=== PATIENT | female | born 1970 | race Caucasian/White ===

== ENCOUNTER 2016-12-03 13:33 | Emergency (ER) | payer MEDICARE, OTHER ==
--- NOTE | 2016-12-03 14:59 | ER Document Report ---
ED Medical Screen (RME) - General Chief Complaint: Chest Pain Stated Complaint: CHEST PAIN Mode of Arrival: Ambulatory Information source: Patient Notes: 46-year-old female history of Fate's disease with chronic chest pain presents with complaints of chest pain rating to her neck. Patient notes she has had this pain for at least 1 year normal goes to [facility] where she has been seen multiple times for this, has had recent evaluation on Monday as well. Patient denies any history of hypertension hyperlipidemia or diabetes, patient had a heart catheter in 2008 which was normal I have greeted and performed a rapid initial assessment of this patient. A comprehensive ED assessment and evaluation of the patient, analysis of test results and completion of the medical decision making process will be conducted by additional ED providers. PHYSICAL EXAMINATION: GENERAL: Well-appearing, well-nourished and in no acute distress. HEAD: Atraumatic, normocephalic. EYES: Pupils equal round and reactive to light, extraocular movements intact, conjunctiva are normal. ENT: Nares patent, oropharynx clear without exudates. Moist mucous membranes. NECK: Normal range of motion, supple without lymphadenopathy LUNGS: Breath sounds clear to auscultation bilaterally and equal. No wheezes rales or rhonchi. HEART: Regular rate and rhythm without murmurs ABDOMEN: Soft, nontender, nondistended abdomen. No guarding, no rebound. No masses appreciated. Female : deferred Musculoskeletal: Normal range of motion, no pitting or edema. No cyanosis. NEUROLOGICAL: Cranial nerves grossly intact. Normal speech, normal gait. Normal sensory, motor exams PSYCH: Normal mood, normal affect. SKIN: Warm, Dry, normal turgor, no rashes or lesions noted. TRAVEL OUTSIDE OF THE [place] IN LAST 30 DAYS: No - HPI Onset: Other Onset/Duration: Persistent Quality of pain: Pressure Severity: Mild Pain Level: 1 Associated Symptoms: Chest pain Exacerbated by: Denies Relieved by: Denies - Related Data Allergies/Adverse Reactions: acetaminophen [From Tylenol] Allergy (Verified 12/03/16 13:51) dexamethasone [From Decadron] Allergy (Verified 01/24/16 19:22) dexamethasone sod phosphate [From Decadron] Allergy (Verified 01/24/16 19:22) hydrocodone Allergy (Verified 01/24/16 19:22) hyoscyamine [From Levsin] Allergy (Verified 12/03/16 14:20) ketorolac tromethamine [From Toradol] Allergy (Verified 01/24/16 19:22) NSAIDS (Non-Steroidal Anti-Inflamma Allergy (Verified 01/24/16 19:22) Penicillins Allergy (Verified 01/24/16 19:22) foam type Allergy (Uncoded 01/24/16 19:22) Past Medical History - Past Medical History Cardiac Medical History: Reports: Hx DVT Denies: Hx Congestive Heart Failure, Hx Coronary Artery Disease, Hx Heart Attack, Hx Hypercholesterolemia, Hx Hypertension, Hx Pulmonary Embolism Pulmonary Medical History: Reports: Hx COPD Endocrine Medical History: Denies: Hx Diabetes Mellitus Type 1, Hx Diabetes Mellitus Type 2 Renal/ Medical History: Denies: Hx Peritoneal Dialysis Psychiatric Medical History: Reports: Hx Anxiety, Hx Depression - anxiety Past Surgical History: Reports: Hx Appendectomy, Hx Cardiac Surgery - cath, Hx Hysterectomy, Hx Orthopedic Surgery - left shoulder right foot, Hx Tonsillectomy - Immunizations Hx Diphtheria, Pertussis, Tetanus Vaccination: Yes Physical Exam - Vital signs Vitals: Temp Pulse Resp BP Pulse Ox 98.3 F 92 18 115/55 L 96 12/03/16 13:51 12/03/16 13:51 12/03/16 13:51 12/03/16 13:51 12/03/16 13:51 Course - Vital Signs Vital signs: Temp Pulse Resp BP Pulse Ox 98.3 F 92 18 115/55 L 96 12/03/16 13:51 12/03/16 13:51 12/03/16 13:51 12/03/16 13:51 12/03/16 13:51
--- NOTE | 2016-12-03 15:04 | ER Document Report ---
ED General - General Chief Complaint: Chest Pain Stated Complaint: CHEST PAIN Mode of Arrival: Ambulatory TRAVEL OUTSIDE OF THE [place] IN LAST 30 DAYS: No - Related Data Allergies/Adverse Reactions: acetaminophen [From Tylenol] Allergy (Verified 12/03/16 13:51) dexamethasone [From Decadron] Allergy (Verified 01/24/16 19:22) dexamethasone sod phosphate [From Decadron] Allergy (Verified 01/24/16 19:22) hydrocodone Allergy (Verified 01/24/16 19:22) hyoscyamine [From Levsin] Allergy (Verified 12/03/16 14:20) ketorolac tromethamine [From Toradol] Allergy (Verified 01/24/16 19:22) NSAIDS (Non-Steroidal Anti-Inflamma Allergy (Verified 01/24/16 19:22) Penicillins Allergy (Verified 01/24/16 19:22) foam type Allergy (Uncoded 01/24/16 19:22) Past Medical History - General Information source: Patient - Social History Family History: CAD - Mother and brother, Other - Mother: DVT and PE Patient has suicidal ideation: No Patient has homicidal ideation: No - Past Medical History Cardiac Medical History: Reports: Hx DVT Denies: Hx Congestive Heart Failure, Hx Coronary Artery Disease, Hx Heart Attack, Hx Hypercholesterolemia, Hx Hypertension, Hx Pulmonary Embolism Pulmonary Medical History: Reports: Hx COPD Endocrine Medical History: Denies: Hx Diabetes Mellitus Type 1, Hx Diabetes Mellitus Type 2 Renal/ Medical History: Denies: Hx Peritoneal Dialysis Psychiatric Medical History: Reports: Hx Anxiety, Hx Depression - anxiety Past Surgical History: Reports: Hx Appendectomy, Hx Cardiac Surgery - cath, Hx Hysterectomy, Hx Orthopedic Surgery - left shoulder right foot, Hx Tonsillectomy - Immunizations Hx Diphtheria, Pertussis, Tetanus Vaccination: Yes Physical Exam - Vital signs Vitals: Temp Pulse Resp BP Pulse Ox 98.3 F 92 18 115/55 L 96 12/03/16 13:51 12/03/16 13:51 12/03/16 13:51 12/03/16 13:51 12/03/16 13:51 Course - Vital Signs Vital signs: Temp Pulse Resp BP Pulse Ox 98.3 F 92 18 115/55 L 96 12/03/16 13:51 12/03/16 13:51 12/03/16 13:51 12/03/16 13:51 12/03/16 13:51 Discharge - Discharge Clinical Impression: Chest pain Qualifiers: Chest pain type: unspecified Qualified Code(s): R07.9 - Chest pain, unspecified Condition: Stable Disposition: AGAINST MEDICAL ADVICE Instructions: Chest Pain of Unclear Cause ([facility]) Referrals: STELLA WINSTON MD [ACTIVE STAFF] - Follow up tomorrow TRU ARANDA MD [ACTIVE STAFF] - Follow up tomorrow JACKIE CANALES MD [EMERITUS] - Follow up tomorrow
[2016-12-03 15:31] LABS: ABSOLUTE BASOPHILS # (AUTO) 0.1 10^3/uL (0.0-0.2); ABSOLUTE LYMPHOCYTES (AUTO) 1.8 10^3/uL (0.5-4.7); ABSOLUTE MONOCYTES (AUTO) 0.6 10^3/uL (0.1-1.4); ABSOLUTE NEUT (AUTO) 9.7 10^3/uL (1.7-8.2); BASOPHILS % (AUTO) 0.5 % (0-2); EOSINOPHILS % (AUTO) 0.1 % (0-6); HEMATOCRIT 42.2 % (36.0-47.0); HEMOGLOBIN 14.5 g/dL (12.0-15.5); HGB HCT DIFFERENCE 1.3; LYMPHOCYTES % (AUTO) 14.9 % (13-45); MEAN CORPUSCULAR HEMOGLOBIN 32.9 pg (27.0-33.4); MEAN CORPUSCULAR HGB CONC 34.3 g/dL (32.0-36.0); MEAN CORPUSCULAR VOLUME 96 fl (80-97); RED CELL DISTRIBUTION WIDTH 14.5 % (11.5-14.0); SEGMENTED NEUTROPHILS % (AUTO) 79.5 % (42-78); WHITE BLOOD COUNT 12.2 10^3/uL (4.0-10.5)
[2016-12-03 15:45] LABS: ALANINE AMINOTRANSFERASE 28 U/L (9-52); ALBUMIN 4.2 g/dL (3.5-5.0); ALKALINE PHOSPHATASE 65 U/L (38-126); ANION GAP 10 (5-19); ASPARTATE AMINO TRANSFERASE 24 U/L (14-36); BILIRUBIN,DIRECT 0.1 mg/dL (0.0-0.4); BILIRUBIN,TOTAL 0.5 mg/dL (0.2-1.3); BLOOD UREA NITROGEN 9 mg/dL (7-20); CALCIUM 10.7 mg/dL (8.4-10.2); CARBON DIOXIDE 28 mmol/L (22-30); CHLORIDE 101 mmol/L (98-107); CREATINE KINASE 65 U/L (30-135); CREATININE RESULT 0.73 mg/dL (0.52-1.25); GLUCOSE 96 mg/dL (75-110); POTASSIUM 4.6 mmol/L (3.6-5.0); SODIUM 139.3 mmol/L (137-145); TOTAL PROTEIN 6.9 g/dL (6.3-8.2)
[2016-12-03 16:05] LABS: CREATINE KINASE MB 1.11 ng/mL (<4.55)
[2016-12-03 16:10] LABS: TROPONIN I < 0.012 ng/mL
--- NOTE | 2016-12-03 18:00 | ER Document Report ---
ED Cardiac - General Chief Complaint: Chest Pain Stated Complaint: CHEST PAIN Mode of Arrival: Ambulatory Notes: Patient is a 46 year old female who presents to the ED complaining of chest pain. She states she has been having this pain for about on year but todays onset was earlier this afternoon. She states that it is sudden onet with an initial sharp stabbing sensation lasting for 20-30 minutes and is then followed by a constant dull pressure that will eventually relive itself or if she takes an aspirin. She states that this pain has been evaluated over the course of this year with a stress test in December 2015 which she says showed a mild insufficiency of blood floow to the posterior aspect of her heart but is consistent with her history that she was a premature infant. She has not been evaluated by a corrections caseworker since this study. Her last evaluation for her chest pain was Monday11/28/2016 at [facility] where she was evaluated for addisonian crisis but discharged home, she states the staff told her her chest pain was not due to CAD but "my right aortic valve isnt closing". She was discharged home and followed up with her PCP at [facility] who did not acknowledge her chest pain. She states her rn icu gave her a referral to Dr. Canales to evaluate her regarding her possible murmur. She states she is irritated that physicians are not treating the patient but her lab work and EKG's. She denies any history of anxiety. Denies recent travel, surgery. FH (-) for CAD /NE in under 50 years old, Patient denies HTN, HLD, DM. She is not obese Upon further questioning, the patient became tearful and irritable regarding her previous evaluations and her wait time here in the ED today.She then refused treatment and started taking of her monitor leads. PMH: Addisons disease, gastric ulcers PSH: bryson SH: 40 pack year smoker, denies etoh or drug use TRAVEL OUTSIDE OF THE [place] IN LAST 30 DAYS: No - Related Data Allergies/Adverse Reactions: acetaminophen [From Tylenol] Allergy (Verified 12/03/16 13:51) dexamethasone [From Decadron] Allergy (Verified 01/24/16 19:22) dexamethasone sod phosphate [From Decadron] Allergy (Verified 01/24/16 19:22) hydrocodone Allergy (Verified 01/24/16 19:22) hyoscyamine [From Levsin] Allergy (Verified 12/03/16 14:20) ketorolac tromethamine [From Toradol] Allergy (Verified 01/24/16 19:22) NSAIDS (Non-Steroidal Anti-Inflamma Allergy (Verified 01/24/16 19:22) Penicillins Allergy (Verified 01/24/16 19:22) foam tape Allergy (Uncoded 12/03/16 16:51) foam type Allergy (Uncoded 01/24/16 19:22) Past Medical History - General Information source: Patient - Social History Smoking Status: Current Every Day Smoker Chew tobacco use (# tins/day): No Frequency of alcohol use: None Drug Abuse: None Family History: CAD - Mother and brother, Other - Mother: DVT and PE Patient has suicidal ideation: No Patient has homicidal ideation: No - Past Medical History Cardiac Medical History: Reports: Hx DVT Denies: Hx Congestive Heart Failure, Hx Coronary Artery Disease, Hx Heart Attack, Hx Hypercholesterolemia, Hx Hypertension, Hx Pulmonary Embolism Pulmonary Medical History: Reports: Hx COPD Endocrine Medical History: Denies: Hx Diabetes Mellitus Type 1, Hx Diabetes Mellitus Type 2 Renal/ Medical History: Denies: Hx Peritoneal Dialysis Psychiatric Medical History: Reports: Hx Anxiety, Hx Depression - anxiety Past Surgical History: Reports: Hx Appendectomy, Hx Cardiac Surgery - cath, Hx Cholecystectomy, Hx Hysterectomy, Hx Orthopedic Surgery - left shoulder right foot Rwrist, Hx Tonsillectomy - Immunizations Hx Diphtheria, Pertussis, Tetanus Vaccination: Yes Review of Systems - Review of Systems Constitutional: No symptoms reported Cardiovascular: Chest pain Respiratory: No symptoms reported Gastrointestinal: No symptoms reported -: Yes All other systems reviewed and negative Physical Exam - Vital signs Vitals: Temp Pulse Resp BP Pulse Ox 98.3 F 92 18 115/55 L 96 12/03/16 13:51 12/03/16 13:51 12/03/16 13:51 12/03/16 13:51 12/03/16 13:51 - Notes Notes: Patient refused physical exam and said she no longer wanted to be evaluated. She refused to let me examine her - Psychological Associated symptoms: Aggressive, Anxious, Irritable Course - Re-evaluation Re-evalutation: 12/03/16 19:39 Patient is very well in appearance albeit anxious, vitals within normal limits. Low clinical suspicion for ACS given clinical history, exam, EKG without ST elevations or depressions, and negative initial troponin. HEART score less than or equal to 3. PE also seems unlikely given clinical history, absence of tachycardia or dyspnea. Well's score of 0. CXR without evidence of pneumothorax or pneumonia. No widened mediastinum. Aortic dissection also seems unlikely given history, CXR, and vitals. Patient does not meet admit observation criteria. Patient eloped prior to discussion of AMA and we were not able to give her referrals for cardiology. - Vital Signs Vital signs: Temp Pulse Resp BP Pulse Ox 98.3 F 92 7 L 106/66 97 12/03/16 13:51 12/03/16 13:51 12/03/16 17:01 12/03/16 17:01 12/03/16 17:01 - Laboratory Result Diagrams: 12/03/16 15:10 12/03/16 15:10 Laboratory results interpreted by me: 12/03/16 12/03/16 15:10 15:10 WBC 12.2 H RDW 14.5 H Seg Neutrophils % 79.5 H Absolute Neutrophils 9.7 H Calcium 10.7 H - Diagnostic Test Radiology reviewed: Image reviewed, Reports reviewed - EKG Interpretation by Me EKG shows normal: Sinus rhythm Rate: Normal Rhythm: NSR When compared to previous EKG there are: No significant change Discharge - Discharge Clinical Impression: Chest pain Qualifiers: Chest pain type: unspecified Qualified Code(s): R07.9 - Chest pain, unspecified Condition: Stable Disposition: ELOPED Instructions: Chest Pain of Unclear Cause ([facility]) Referrals: TRU ARANDA MD [ACTIVE STAFF] - Follow up tomorrow JACKIE CANALES MD [EMERITUS] - Follow up tomorrow STELLA WINSTON MD [ACTIVE STAFF] - Follow up tomorrow
[2016-12-03 18:04] VITALS: BP 106/66
--- NOTE | 2016-12-04 10:21 | EKG REPORT ---
SEVERITY:- BORDERLINE ECG - SINUS RHYTHM PROBABLE LEFT ATRIAL ABNORMALITY : Confirmed by: Harini Escobedo 04-Dec-2016 10:21:30
== END 2016-12-03 18:00 | disposition left against medical advice (07) ==
LOC: ER 13:33
DX: R07.9 Chest pain, unspecified (principal); F17.200 Nicotine dependence, unspecified, uncomplicated
CPT/HCPCS: 36415; 71010; 80053; 82550; 82553; 84484; 85025; 93005; 93010; 99281

== ENCOUNTER → 2017-03-02 | Outpatient (CLI) | payer MEDICARE, OTHER ==
[2017-03-02 11:19] LABS: CHOLESTEROL 191.51 mg/dL (0-200); Direct HDL 67 mg/dL (>40); TRIGLYCERIDES 157 mg/dL (<150)
[2017-03-02 11:29] LABS: DIRECT LDL 94 mg/dL (<100)
[2017-03-02 11:31] LABS: VLDL CHOLESTEROL 31.4 mg/dL (10-31)
[2017-03-03 00:08] LABS: ALANINE AMINOTRANSFERASE 18 U/L (9-52); ALBUMIN 3.4 g/dL (3.5-5.0); ALKALINE PHOSPHATASE 57 U/L (38-126); ANION GAP 8 (5-19); ASPARTATE AMINO TRANSFERASE 17 U/L (14-36); BILIRUBIN,DIRECT 0.3 mg/dL (0.0-0.4); BILIRUBIN,TOTAL 0.3 mg/dL (0.2-1.3); BLOOD UREA NITROGEN 15 mg/dL (7-20); CALCIUM 9.2 mg/dL (8.4-10.2); CARBON DIOXIDE 27 mmol/L (22-30); CHLORIDE 104 mmol/L (98-107); CREATININE RESULT 0.93 mg/dL (0.52-1.25); GLUCOSE 84 mg/dL (75-110); POTASSIUM 4.2 mmol/L (3.6-5.0); SODIUM 139.4 mmol/L (137-145); TOTAL PROTEIN 6.1 g/dL (6.3-8.2)
== END ==
LOC: OD 09:48
PROVIDERS: ATTEND Internal Medicine Cardiovascular Disease
DX: R00.2 Palpitations (principal); R07.89 Other chest pain; Z79.899 Other long term (current) drug therapy
CPT/HCPCS: 36415; 80048; 80061; 80076; 83735; 84443

== ENCOUNTER → 2017-09-07 | Outpatient (CLI) | payer MEDICARE, OTHER ==
--- NOTE | 2017-09-07 13:40 | WOMENS IMAGING REPORT ---
EXAM DESCRIPTION: BONE DENSITY HIP/SPINE COMPLETED DATE/TIME: 09/07/2017 12:56 pm REASON FOR STUDY: AGE-RELATED OSTEOPROSIS; M81.0 M81.8 OTHER OSTEOPOROSIS WITHOUT CURRENT PATHOLOGI TINO FRACTU M81.0 AGE-RELATED OSTEOPOROSIS W/O CURRENT PATHOLOGICAL FRAC COMPARISON: None. TECHNIQUE: Dual-Energy X-ray Absorptiometry (DEXA) of the AP Spine and Hip. LIMITATIONS: None. FINDINGS: LUMBAR SPINE: The bone mineral density (BMD) measured from L1-L4 in the AP projection correlates with a T-score of -3.5, which is osteoporotic as defined by the World Health Organization. HIP: The bone mineral density (BMD) measured in the left femoral neck at the hip correlates with a T-score of -2.4, which is borderline osteoporotic as defined by the World Health Organization. IMPRESSION: 1. LUMBAR SPINE: Osteoporotic 2. HIP: Borderline osteoporotic COMMENT: The World Health Organization defines low BMD as follows: T-score: Normal: Greater than -1.0 Osteopenia: Between -1.0 and -2.5 Osteoporosis: Less than -2.5 without fractures Established osteoporosis: Less than -2.5 with fractures In general, you may wish to consider: Diagnosis Treatment Follow-up DEXA Normal BMD Prevention 2-3 years Osteopenia Prevention/Therapy 1-2 years Osteoporosis Therapy Yearly TECHNICAL DOCUMENTATION: JOB ID: [id number]- All Rights Reserved
== END ==
LOC: WI 12:47
PROVIDERS: ATTEND Physician Assistant
DX: M81.8 Other osteoporosis without current pathological fracture (principal)
CPT/HCPCS: 77080

== ENCOUNTER → 2018-03-24 | Outpatient (CLI) | payer MEDICARE, OTHER ==
[2018-03-24 12:53] LABS: ALANINE AMINOTRANSFERASE 16 U/L (9-52); ALBUMIN 3.5 g/dL (3.5-5.0); ALKALINE PHOSPHATASE 74 U/L (38-126); ASPARTATE AMINO TRANSFERASE 19 U/L (14-36); BILIRUBIN,DIRECT 0.3 mg/dL (0.0-0.4); BILIRUBIN,TOTAL 0.4 mg/dL (0.2-1.3); CHOLESTEROL 173.46 mg/dL (0-200); CREATINE KINASE 50 U/L (30-135); TOTAL PROTEIN 6.2 g/dL (6.3-8.2); TRIGLYCERIDES 185 mg/dL (<150)
[2018-03-24 13:06] LABS: DIRECT LDL 75 mg/dL (<100)
== END ==
LOC: OD 11:10
PROVIDERS: ATTEND Internal Medicine Cardiovascular Disease
DX: M81.8 Other osteoporosis without current pathological fracture (principal); E78.2 Mixed hyperlipidemia; R25.2 Cramp and spasm; Z79.899 Other long term (current) drug therapy
CPT/HCPCS: 36415; 80061; 80076; 82310; 82550; 82652

== ENCOUNTER → 2018-03-30 | Outpatient (CLI) | payer MEDICARE, OTHER ==
[2018-03-30 15:57] LABS: ANION GAP 9 (5-19); BLOOD UREA NITROGEN 7 mg/dL (7-20); CALCIUM 9.1 mg/dL (8.4-10.2); CARBON DIOXIDE 25 mmol/L (22-30); CHLORIDE 107 mmol/L (98-107); GLUCOSE 86 mg/dL (75-110); POTASSIUM 4.4 mmol/L (3.6-5.0); SODIUM 141.2 mmol/L (137-145)
== END ==
LOC: OD 14:20
PROVIDERS: ATTEND Internal Medicine Cardiovascular Disease
DX: R07.89 Other chest pain (principal); E27.9 Disorder of adrenal gland, unspecified; R53.82 Chronic fatigue, unspecified
CPT/HCPCS: 36415; 80048; 83880

== ENCOUNTER → 2018-04-06 | Day surgery (SDC) | payer MEDICARE, OTHER ==
--- NOTE | 2018-04-06 13:20 | RADIOLOGY REPORT (SQ) ---
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 COMPARISON: None. NUMBER OF VIEWS: Three views. TECHNIQUE: AP, lateral and oblique radiographic images acquired of the right foot. LIMITATIONS: None. FINDINGS: MINERALIZATION: Normal. BONES: Post bunion corrective surgery with healed 1st metatarsal osteotomy. Micro screws in the 2nd and 3rd metatarsal heads. Microplate and screws in the distal 3rd meta tarsal diaphysis. Surgical r adiopaque sutures 3rd toe proximal phalanx. No lucency around the hardware worrisome for loosening o r infection. No acute fracture. No malalignment. JOINTS: Osteoarthritis with joint space narrowing at the 1st through 4th metatarsophalangeal joints. SOFT TISSUES: No soft tissue swelling. No foreign body. OTHER: No other significant finding. IMPRESSION: No acute findings. Postsurgical changes as above TECHNICAL DOCUMENTATION: JOB ID: [id number] [employer]- All Rights Reserved Reading location - IP/workstation name: [email or web address]-[email or web address]
--- NOTE | 2018-04-06 13:22 | RADIOLOGY REPORT (SQ) ---
EXAM DESCRIPTION: ARTHRO HIP INJ W/ANESTHESIA; FLUORO/NEEDLE PLACEMENT COMPLETED DATE/TIME: 04/06/2018 1:14 pm REASON FOR STUDY: PAIN IN RIGHT HIP M25.551 PAIN IN RIGHT HIP COMPARISON: None. FLUOROSCOPY TIME: 10 seconds 1 digital radiographic images saved to PACS. LIMITATIONS: None. PROCEDURE: Procedure, risks, benefits and alternatives explained to patient who then gave written c onsent. The right hip was marked and a time-out was called for correct marking verification. Entry site marked using fluoroscopic guidance. Hip prepped and draped using sterile technique. Local ane sthesia achieved using 7 mL 1% lidocaine injection. 22 gauge spinal needle introduced into the joint space under direct fluoroscopic visualization. Non-ionic contrast instilled to confirm intra-articu lar position. Dilute gadolinium solution then injected. Needle removed and entry site covered with sterile bandage. No immediate complications noted. TECHNIQUE: Digital images acquired during fluoroscopy and stored on PACS. Patient immediately take n to the MR suite for additional imaging. INJECTION LOCATION: Right hip CONTRAST TYPE AND AMOUNT: 1 mL of Isovue-300 was injected to confirm intra-articular needle placement followed by 8 mL of Dotarem/Saline mixture. IMPRESSION: SUCCESSFUL NEEDLE PLACEMENT AND INJECTION FOR RIGHT HIP MR ARTHROGRAM. COMMENT: Quality ID 145: Final reports for procedures using fluoroscopy that document radiation exp osure indices, or exposure time and number of fluorographic images (if radiation exposure indices are not available) TECHNICAL DOCUMENTATION: JOB ID: [id number] [employer]- All Rights Reserved Reading location - IP/workstation name: [email or web address]
--- NOTE | 2018-04-06 13:22 | RADIOLOGY REPORT (SQ) ---
EXAM DESCRIPTION: ARTHRO HIP INJ W/ANESTHESIA; FLUORO/NEEDLE PLACEMENT COMPLETED DATE/TIME: 04/06/2018 1:14 pm REASON FOR STUDY: PAIN IN RIGHT HIP M25.551 PAIN IN RIGHT HIP COMPARISON: None. FLUOROSCOPY TIME: 10 seconds 1 digital radiographic images saved to PACS. LIMITATIONS: None. PROCEDURE: Procedure, risks, benefits and alternatives explained to patient who then gave written c onsent. The right hip was marked and a time-out was called for correct marking verification. Entry site marked using fluoroscopic guidance. Hip prepped and draped using sterile technique. Local ane sthesia achieved using 7 mL 1% lidocaine injection. 22 gauge spinal needle introduced into the joint space under direct fluoroscopic visualization. Non-ionic contrast instilled to confirm intra-articu lar position. Dilute gadolinium solution then injected. Needle removed and entry site covered with sterile bandage. No immediate complications noted. TECHNIQUE: Digital images acquired during fluoroscopy and stored on PACS. Patient immediately take n to the MR suite for additional imaging. INJECTION LOCATION: Right hip CONTRAST TYPE AND AMOUNT: 1 mL of Isovue-300 was injected to confirm intra-articular needle placement followed by 8 mL of Dotarem/Saline mixture. IMPRESSION: SUCCESSFUL NEEDLE PLACEMENT AND INJECTION FOR RIGHT HIP MR ARTHROGRAM. COMMENT: Quality ID 145: Final reports for procedures using fluoroscopy that document radiation exp osure indices, or exposure time and number of fluorographic images (if radiation exposure indices are not available) TECHNICAL DOCUMENTATION: JOB ID: [id number] [employer]- All Rights Reserved Reading location - IP/workstation name: [email or web address]
--- NOTE | 2018-04-06 14:52 | RADIOLOGY REPORT (SQ) ---
EXAM DESCRIPTION: MRI RT LOWER JOINT WITH COMPLETED DATE/TIME: 04/06/2018 1:53 pm REASON FOR STUDY: PAIN IN RIGHT HIP M25.551 PAIN IN RIGHT HIP COMPARISON: None. TECHNIQUE: Post arthrogram imaging is performed using T1 and T1 and T2 fat saturated sequences of th e pelvis and specific hip of interest. LIMITATIONS: None. FINDINGS: JOINT DISTENSION: Adequate. No loose body. BONE MARROW: No edema. No marrow replacement. FEMORAL HEAD, NECK, AND ACETABULUM: No occult fracture. No osteophytes or subchondral cysts. Normal s phericity of femoral head/neck junction. No acetabular dysplasia. No evidence of femoroacetabular imp ingement. LABRUM AND CARTILAGE: Small anterior labral tear, best shown on coronal thin section series 8, images 9-12. No paralabral cyst. Cartilage otherwise of normal thickness and signal. PUBIC RAMI AND ISCHIUM: No occult fracture. SACRUM AND LILIAM: SI joints normal in signal. No occult fracture. EFFUSIONS: None. MUSCLES AND SOFT TISSUES: Adductors and piriformis normal. Abductors and greater trochanteric bursa n ormal without edema or fluid. Iliopsoas bursa without fluid. Hamstring attachments without edema or t ear. PELVIC SOFT TISSUES: No masses or adenopathy. SCIATIC NERVE: Identified without masses. OTHER: No other significant finding. IMPRESSION: Right acetabular labral tear without paralabral cyst formation. TECHNICAL DOCUMENTATION: JOB ID: [id number] [employer]- All Rights Reserved Reading location - IP/workstation name: [facility]
== END ==
LOC: RAD 11:37
PROVIDERS: ATTEND Physician Assistant
DX: M25.551 Pain in right hip (principal)
CPT/HCPCS: 73722; 73630; 77002; 27095; A9576

== ENCOUNTER → 2018-05-08 | Outpatient (CLI) | payer MEDICARE, OTHER ==
--- NOTE | 2018-05-08 17:08 | RADIOLOGY REPORT (SQ) ---
EXAM DESCRIPTION: CT BONE LENGTH COMPLETED DATE/TIME: 05/08/2018 12:30 pm REASON FOR STUDY: LLD (Q72.819) Q72.819 CONGENITAL SHORTENING OF UNSPECIFIED LOWER LIMB COMPARISON: None. TECHNIQUE: CT scanogram of the bilateral lower extremities is performed including pelvis to ankles. Measurements of femur, tibia, and entire lower extremities performed by the radiologist and saved to PACS. All CT scanners at this facility use dose modulation, iterative reconstruction, and/or weight based d osing when appropriate to reduce radiation dose to as low as reasonably achievable (ALARA). [facility]: Dose Right [facility]: CareDose [facility]: Dose Right [facility]: Teradose 4D [facility]: Kyruus RADIATION DOSE: 0.1 mGy. LIMITATIONS: None. FINDINGS: RIGHT: FEMUR: 45.6 cm. TIBIA: 37 cm. TOTAL RIGHT LOWER EXTREMITY LENGTH: 81.9 cm. LEFT: FEMUR: 45 cm. TIBIA: 36.8 cm. TOTAL LEFT LOWER EXTREMITY LENGTH: 81.2 cm. IMPRESSION: LEG LENGTH MEASUREMENTS DETAILED ABOVE. TECHNICAL DOCUMENTATION: JOB ID: [id number] Quality ID # [id number]: Final reports with documentation of one or more dose reduction techniques (e.g., Au tomated exposure control, adjustment of the mA and/or kV according to patient size, use of iterative reconstruction technique) 2010 [employer]- All Rights Reserved Reading location - IP/workstation name: [email or web address]
== END ==
LOC: RAD 12:15
PROVIDERS: ATTEND Podiatrist Foot & Ankle Surgery
DX: Q72.819 Congenital shortening of unspecified lower limb (principal)
CPT/HCPCS: 77073